=== PATIENT | female | born 2000 | race Caucasian/White ===

== ENCOUNTER 2019-02-09 09:24 | Emergency (ER) | payer OTHER ==
[~2019-02-09] VITALS: Ht 157.5 cm; Wt 68.0 kg
[2019-02-09 09:30] VITALS: BP 120/75
--- NOTE | 2019-02-09 09:34 | NUR ---
PT AMBULATES TO BED 2
--- NOTE | 2019-02-09 09:40 | NUR ---
18 YO F BIB SELF WITH MOM C/O RIGHT EAR PAIN X 2 DAYS. PT STATES PAIN PRESENT TO INNER EAR AND TENDERNESS TO THE OUTSIDE OF EAR. RIGHT EAR APPEARS RED WITH SOME MILD INFLAMMATION. PT ALSO STATES SHE HAD A FEVER LAST NIGHT. AFEBRILE AT THIS TIME. -- PMH: DENIES -- RX: TYLENOL AT 0200, OTC EAR DROPS AT 0300 PT POSITIONED FOR COMFORT. HOB ELEVATED. SIDE RAIL DOWN X 1. BED IN LOWEST POSITION. VSS. NO APPARENT DISTRESS AT THIS TIME.
--- NOTE | 2019-02-09 09:48 | NUR ---
DR. PHIPPS EVALUATING AT BEDSIDE.
[2019-02-09 10:20] VITALS: BP 120/75
--- NOTE | 2019-02-09 10:20 | NUR ---
Patient discharged with v/s stable. Written and verbal after care instructions given and explained. Patient alert, oriented and verbalized understanding of instructions. Ambulatory with steady gait. All questions addressed prior to discharge. ID band removed. Patient advised to follow up with PMD. Rx of Cortisporin ear drops, Cipro, and Naprosyn given. Patient educated on indication of medication including possible reaction and side effects. Opportunity to ask questions provided and answered.
== END 2019-02-09 10:20 | disposition home or self-care (01) ==
LOC: MED 09:24
DX: H60.92 Unspecified otitis externa, left ear (principal); H66.92 Otitis media, unspecified, left ear; J03.90 Acute tonsillitis, unspecified; J06.9 Acute upper respiratory infection, unspecified
CPT/HCPCS: 99283